=== PATIENT | female | born 1960 | race Caucasian/White ===

== ENCOUNTER 2020-09-06 11:26 | Emergency (ER) | payer OTHER ==
[~2020-09-06] VITALS: Ht 165.1 cm; Wt 69.5 kg
--- NOTE | 2020-09-06 14:49 | RAD ---
MRI THORACIC SPINE WO 09/06/2020 1:11 PM INDICATION: Right-sided pain. Right lower extremity numbness and weakness. COMPARISON: None available. TECHNIQUE: Multiplanar, multisequence MR imaging of the thoracic spine was performed without intrave nous contrast. FINDINGS: Mild disc bulges are identified at C5-C6 and C6-C7 with mild spinal canal stenosis. No deformity of t he cord. Alignment of thoracic spine is normal. Vertebral body heights are maintained. Marrow signal intensity is normal in all sequences. There is mild disc height loss at T5-T6. There is a central dis c extrusion at T5-T6 with mild spinal canal stenosis and no significant deformity of the cord. No cor d signal alteration. Mild disc bulges identified at T9-T10, T10-T11 and T11-T12 without significant n euroforaminal or spinal canal stenosis. Lungs are clear. Heart size within normal limits. Thoracic ao rta is normal in caliber. No suspicious abnormality involving the results portions of the upper abdom en. IMPRESSION: Mild thoracic spondylosis. No acute fracture or malalignment. Electronically signed by: Kaila Schumacher MD (09/06/2020 2:47 PM) [facility]
[2020-09-06] MEDS ORDERED: fentaNYL PF VIAL 100 MCG/2 ML VIAL IM ONE (15:15)
--- NOTE | 2020-09-06 15:22 | RAD ---
EXAM: MRI Lumbar Spine without IV contrast INDICATION: Reason: pain, RLE numbness, concern for cauda equina / Spl. Instructions: / History: . TECHNIQUE: Sagittal T1-w, T2-w, and STIR images, and axial T1-w and T2-w images of the lumbar spine. COMPARISON: None FINDINGS: The lowest fully formed disc is referred to as the L5-S1 level. ALIGNMENT: Alignment shows minimal rightward convexity scoliosis but no listhesis. OSSEOUS: No evidence of fracture or bone destruction. Marrow signal is within normal limits. CONUS MEDULLARIS & CAUDA EQUINA: The conus medullaris is in normal position. The conus medullaris and cauda equina are intrinsically normal. SOFT TISSUES: Marked urinary bladder distention.. DISC LEVELS: T12-L1: Unremarkable. L1-L2: Mild disc desiccation and loss of height with mild diffuse disc bulge is present, slightly fla ttening the ventral thecal sac but resulting in no significant central canal or foraminal stenosis. L2-L3: Unremarkable. L3-L4: Unremarkable. L4-L5: Bilateral facet hypertrophy, left greater than right with ligamentum flavum thickening results in mild left foraminal narrowing. No central canal or right foraminal stenosis. L5-S1: Disc osteophyte complex with loss of height and mild bilateral facet hypertrophy is present. T his results in moderate bilateral foraminal stenosis. The central canal is patent. IMPRESSION: Bilateral lower L5-S1 foraminal narrowing due to disc osteophyte complex with loss of height. No evid ence of mass effect on the cauda equina or distal spinal cord. Electronically signed by: Tali Cardona MD (09/06/2020 3:20 PM) [id number]
--- NOTE | 2020-09-06 15:36 | PHYS DOC ---
Past Medical History Past Medical History: Hypertension Past Surgical History: Other Additional Past Surgical Histo: gastric bypass,bone spur, lt ankle, tummy tuck, face lift Smoking Status: Never Smoker Alcohol Use: Occasionally Drug Use: None General Adult EDM: Chief Complaint: HIP PAIN HPI: HPI: 60-year-old female presents with report of right leg pain and difficulty with ambulation due to weakness and decreased sensation to right leg which started yesterday at approximately 0800. Patient seen yesterday for back pain at [place] [facility] emergency department and prescribed muscle relaxer, steroid, and Norflex. Patient denies improvement of symptoms with these medications. Denies trauma. Denies loss of bowel or bladder. Denies dysuria or hematuria. Review of Systems: Review of Systems: Constitutional: Denies fever or chills Eyes: Denies redness or eye pain HENT: Denies nasal congestion or sore throat Respiratory: Denies cough or shortness of breath Cardiovascular: Denies chest pain or palpitations GI: Denies abdominal pain, nausea, or vomiting : Denies dysuria or hematuria Musculoskeletal: Reports low back pain Integument: Denies rash or skin lesions Neurologic: Reports focal weakness to right lower extremity and decreased sensation; denies loss of bowel or bladder Complete systems were reviewed and found to be within normal limits, except as documented in this note. Current Medications: Current Medications Medications (Trade) Dose Ordered Sig/Latrice Start Time Stop Time Status Last Admin Dose Admin Fentanyl Citrate (Fentanyl 2ml Vial) 50 mcg 1X ONCE 09/06/20 15:45 09/06/20 15:46 UNV Allergies: Allergies: Allergies Coded Allergies Type Severity Reaction Last Updated Verified No Known Drug Allergies 09/06/20 No Physical Exam: PE: Constitutional: Well developed, well nourished, uncomfortable, non-toxic appearance HENT: Normocephalic, atraumatic Eyes: Conjunctiva normal, no discharge Neck: Normal range of motion, no tenderness, supple Lungs & Thorax: No respiratory distress, equal chest rise and fall Abdomen: Soft, no tenderness Skin: Warm, dry, no erythema, no rash Back: No midline tenderness, no CVA tenderness, paraspinal tenderness to lumbar and lower thoracic spine Extremities: No tenderness, ROM intact, no edema Neurologic: Alert and oriented X 3, limited straight leg raise of right leg, decreased sensation to LLE Psychologic: Affect normal, judgment normal Current Patient Data: Vital Signs: Vital Signs Date Time Temp Pulse Resp B/P (MAP) Pulse Ox O2 Delivery O2 Flow Rate FiO2 09/06/20 13:03 72 18 127/81 (96) Room Air 09/06/20 12:31 97 09/06/20 11:32 97.3 97.3 EKG: EKG: [] Radiology/Procedures: Radiology/Procedures: PROCEDURE: LUMBAR SPINE WO CONTRAST EXAM: MRI Lumbar Spine without IV contrast INDICATION: Reason: pain, RLE numbness, concern for cauda equina / Spl. Instructions: / History: . TECHNIQUE: Sagittal T1-w, T2-w, and STIR images, and axial T1-w and T2-w images of the lumbar spine. COMPARISON: None FINDINGS: The lowest fully formed disc is referred to as the L5-S1 level. ALIGNMENT: Alignment shows minimal rightward convexity scoliosis but no listhesis. OSSEOUS: No evidence of fracture or bone destruction. Marrow signal is within normal limits. CONUS MEDULLARIS & CAUDA EQUINA: The conus medullaris is in normal position. The conus medullaris and cauda equina are intrinsically normal. SOFT TISSUES: Marked urinary bladder distention.. DISC LEVELS: T12-L1: Unremarkable. L1-L2: Mild disc desiccation and loss of height with mild diffuse disc bulge is present, slightly flattening the ventral thecal sac but resulting in no significant central canal or foraminal stenosis. L2-L3: Unremarkable. L3-L4: Unremarkable. L4-L5: Bilateral facet hypertrophy, left greater than right with ligamentum flavum thickening results in mild left foraminal narrowing. No central canal or right foraminal stenosis. L5-S1: Disc osteophyte complex with loss of height and mild bilateral facet hypertrophy is present. This results in moderate bilateral foraminal stenosis. The central canal is patent. IMPRESSION: Bilateral lower L5-S1 foraminal narrowing due to disc osteophyte complex with loss of height. No evidence of mass effect on the cauda equina or distal spinal cord. Electronically signed by: Tali Cardona MD (09/06/2020 3:20 PM) [id number] PROCEDURE: THORACIC SPINE WO CONTRAST MRI THORACIC SPINE WO 09/06/2020 1:11 PM INDICATION: Right-sided pain. Right lower extremity numbness and weakness. COMPARISON: None available. TECHNIQUE: Multiplanar, multisequence MR imaging of the thoracic spine was performed without intravenous contrast. FINDINGS: Mild disc bulges are identified at C5-C6 and C6-C7 with mild spinal canal stenosis. No deformity of the cord. Alignment of thoracic spine is normal. Vertebral body heights are maintained. Marrow signal intensity is normal in all sequences. There is mild disc height loss at T5-T6. There is a central disc extrusion at T5-T6 with mild spinal canal stenosis and no significant deformity of the cord. No cord signal alteration. Mild disc bulges identified at T9-T10, T10-T11 and T11-T12 without significant neuroforaminal or spinal canal stenosis. Lungs are clear. Heart size within normal limits. Thoracic aorta is normal in caliber. No suspicious abnormality involving the results portions of the upper abdomen. IMPRESSION: Mild thoracic spondylosis. No acute fracture or malalignment. Electronically signed by: Kaila Schumacher MD (09/06/2020 2:47 PM) [facility] Course & Med Decision Making: Course & Med Decision Making Pertinent Imaging studies reviewed. (See chart for details) Patient recently seen at [place] [facility] emergency department by myself yesterday presents with progression and back pain with difficulty with ambulation. Denies loss of bowel or bladder. Afebrile. Discussed case with Mamie nurse practitioner with Dr. Molina (neurosurgery), who is in agreement with MRI of thoracic and lumbar spine. Pain addressed. MRI obtained without signs of cauda equina or other significant abnormality. Patient stable for discharge with outpatient follow-up with PCP/pain management. Pain management referral provided. Discussed findings and plan with patient and spouse, who acknowledge understanding and agreement. Brad Disclaimer: Brad Disclaimer: This electronic medical record was generated, in whole or in part, using a voice recognition dictation system. Departure Departure Impression: Primary Impression: Radiculopathy of leg Disposition: 01 DC HOME SELF CARE/HOMELESS Condition: STABLE Referrals: UNKNOWN PCP NAME (PCP) GERRI MATT MD, BRIAN N MD Patient Instructions: Lumbosacral Radiculopathy, Sciatica, [id number] Additional Instructions: Please continue previously prescribed medications. YOU may switch between new prescription PERCOCET and previous prescription NORCO . DO NOT TAKE BOTH TOGETHER. Both are pain medications and both have Tylenol in them. ICE area of discomfort 20 min on then leave off next 20 mins. Repeat several times daily for next few days. Scripts Oxycodone/Apap 5-325 (PERCOCET 5-325 MG TABLET ) 1 Each Tablet 0.5-1 TAB PO PRN Q6HRS PRN for PAIN, #14 TAB 0 Refills Prov: LOYDA CASTRO DO 09/06/20 LOYDA CASTRO DO Sep 06, 2020 15:36
[2020-09-06] MEDS ORDERED: fentaNYL PF VIAL 100 MCG/2 ML VIAL IV ONE (15:45)
[2020-09-06] MEDS ORDERED: oxyCODONE/APAP 5/325 1 TAB TABLET PO ONE (16:15)
[2020-09-06 16:30] VITALS: BP 138/76
[2020-09-06] MEDS ORDERED: OXYC1TAB15 PO (16:43)
== END 2020-09-06 17:05 | disposition home or self-care (01) ==
LOC: ER 11:26
DX: M54.17 Radiculopathy, lumbosacral region (principal); M54.18 Radiculopathy, sacral and sacrococcygeal region; I10 Essential (primary) hypertension; Z95.1 Presence of aortocoronary bypass graft
CPT/HCPCS: 72146; 72148; 96374; 99285; J3010